=== PATIENT | female | born 1965 | race Caucasian/White ===

== ENCOUNTER 2016-11-26 11:21 | Day surgery (SDC) | payer BC ==
[2016-11-18 09:00] VITALS: BMI 42.5
[~2016-11-26 11:21] MED LIST: LACTATED RINGERS 1,000 ML IV SCH
[2016-11-26 12:40] VITALS: RESP 16; TEMP 98.2
[2016-11-26] MEDS ORDERED: PROPOFOL 10 MG/ML 20 ML VIAL IV ONE (13:47)
--- NOTE | 2016-11-26 14:21 | P.PCN ---
Date of Procedure: 11/26/16 Procedure(s) Performed: Procedure: Total colonoscopy Preoperative diagnosis: Rectal pain and rectal bleeding. Postoperative diagnosis: 1. Sigmoid diverticulosis with no evidence of acute diverticulitis, strictures polyps or cancer. 2. Prominent anal papillae but no definite fissures appreciated or any evidence of bleeding on this exam. Preparation: HalfLytely prep. Sedation: Was provided by anesthesia. Brief clinical history: The patient is a 51-year-old female who is referred for this evaluation because of rectal pains and intermittent rectal bleeding for the last couple months. She apparently had some similar episode in 2013 that subsided with conservative management. The patient had no prior colonoscopy. Her symptoms are not related to changes in her bowel movements. Procedure: With the patient on her left lateral decubitus position and after informed consent and adequate sedation, the perianal area was inspected and it did not show any fissures or fistulas. There was some skin redundancy and possible thrombosed external hemorrhoids. There were no masses felt on digital rectal examination. The Olympus CFQ 160L video colonoscope was then inserted in the rectum in the usual fashion and advanced to the cecum. There were several diverticular orifices seen scattered in the sigmoid but I saw no evidence of acute diverticulitis or strictures. The mucosa appeared healthy. No polyps or tumors were seen or any other pathology. In the retroflex view in the rectum I noted prominent anal papillae but there was no bleeding or other pathology identified. The patient tolerated the procedure well. Plan: The patient was reassured. Her symptoms are likely to be related to anal fissure and muscle spasm. I advised dietary measures, stool softeners, sitz baths and [id number] remedies. Further plans can be made based on her course. I will be happy to see in the office of her symptoms persist. She will follow-up with you as planned.
[2016-11-26 14:35] VITALS: BP 136/82; PULSE 72
== END 2016-11-26 15:18 | disposition home or self-care (01) ==
LOC: ORWHC2ENDO 11:21
DX: K57.30 Diverticulosis of large intestine without perforation or abscess without bleeding (principal); L98.7 Excessive and redundant skin and subcutaneous tissue; I10 Essential (primary) hypertension; K21.9 Gastro-esophageal reflux disease without esophagitis; Z79.1 Long term (current) use of non-steroidal anti-inflammatories (NSAID); Z79.899 Other long term (current) drug therapy
CPT/HCPCS: 81025; 45378; J2704; 99153

== ENCOUNTER → 2017-03-05 | Outpatient (CLI) | payer BC ==
--- NOTE | 2017-03-05 15:50 | US ---
EXAMINATION TYPE: US pelvic complete DATE OF EXAM: 03/05/2017 3:02 PM COMPARISON: 01/13/2015 CLINICAL HISTORY: R10.2 female pelvic pain, R19.09 Rt Lower Quad Mas. Patients states feeling a palpa ble lump on RLQ, lateral to umbilicus. Sometimes painful. TECHNIQUE: Transabdominal (TA) Date of LMP: 02/26/2017 EXAM MEASUREMENTS: Uterus: 9.8 x 4.6 x 4.3 cm Endometrial Stripe: 0.3 cm Right Ovary: 2.9 x 1.5 x 1.3 cm Left Ovary: 2.3 x 1.4 x 1.4 cm 1. Uterus: Anteverted Left fundal lesion - 1.9 x 1.6 x 1.7 cm 2. Endometrium: wnl 3. Right Ovary: wnl as visualized 4. Left Ovary: wnl as visualized Spectral, color and waveform doppler imaging shows good arterial and venous flow within the ovaries ; there is no evidence for ovarian torsion. 5. Bilateral Adnexa: wnl 6. Posterior cul-de-sac: wnl RLQ scanned at palpable area. No prominent mass or lesion seen. Contralateral images seen. IMPRESSION: 1. Left uterine lesion now measures 1.9 cm and previously measured 1.6 cm most likely in the basis of a fibroid within the uterine fundus.
== END | disposition home or self-care (01) ==
LOC: RADUSWWP 14:19
PROVIDERS: ATTEND Internal Medicine
DX: N85.9 Noninflammatory disorder of uterus, unspecified (principal); R10.2 Pelvic and perineal pain; R19.03 Right lower quadrant abdominal swelling, mass and lump
CPT/HCPCS: 76856

== ENCOUNTER → 2021-02-12 | Outpatient (CLI) | payer BC ==
--- NOTE | 2021-02-13 10:22 | MM ---
Reason for exam: additional evaluation requested from prior study. Last mammogram was performed 6 years ago. History: Patient is postmenopausal. Family history of breast cancer in paternal aunt and breast cancer in paternal grandmother. Physical Findings: Nurse did not find any significant physical abnormalities on exam. MG 3D Diag Mammo W/Cad [place] Bilateral CC and MLO view(s) were taken. Prior study comparison: February 06, 2015, bilateral MG screening mammo w CAD. March 23, 2013, bilateral digital screening mammo w/CAD. Finding #1: There is a 5 mm equal density (isodense) mass in the lower outer quadrant, central position of the right breast. Finding #2: There are typically benign grouped/clustered calcifications in the upper outer quadrant of the left breast, stable from 2012. Asymmetric density right upper outer posterior breast. These results were verbally communicated with the patient and result sheet given to the patient on 02/12/21. ASSESSMENT: Incomplete: need additional imaging evaluation, BI-RAD 0 RECOMMENDATION: Ultrasound of the right breast.
--- NOTE | 2021-02-13 10:24 | USB ---
Reason for exam: additional evaluation requested from abnormal screening. History: Patient is postmenopausal. Family history of breast cancer in paternal aunt and breast cancer in paternal grandmother. US Breast Limited RT Technologist: Meliza Read Right limited breast ultrasound including focal area of concern, retroareolar and axilla demonstrates a 0.5 x 0.5 x 0.5cm cystic lesion at 7 o'clock, septated versus cluster. These results were verbally communicated with the patient and result sheet given to the patient on 02/12/21. ASSESSMENT: Probably benign, BI-RAD 3 RECOMMENDATION: Follow-up diagnostic mammogram and ultrasound of the right breast in 6 months.
== END | disposition home or self-care (01) ==
LOC: RADMAMWWP 13:43
PROVIDERS: ATTEND Internal Medicine
DX: N64.89 Other specified disorders of breast (principal); R92.1 Mammographic calcification found on diagnostic imaging of breast; Z78.0 Asymptomatic menopausal state; Z80.3 Family history of malignant neoplasm of breast
CPT/HCPCS: 77062; 77066

== ENCOUNTER → 2021-08-27 | Outpatient (CLI) | payer BC ==
--- NOTE | 2021-08-28 11:19 | MM ---
Reason for exam: follow-up at short interval from prior study. Last mammogram was performed 6 months ago. History: Patient is postmenopausal. Family history of breast cancer in paternal aunt and breast cancer in paternal grandmother. Physical Findings: Nurse did not find any significant physical abnormalities on exam. MG 3D Diag Mammo W/Cad RT CC and MLO view(s) were taken of the right breast. Prior study comparison: February 12, 2021, bilateral MG 3d diag mammo w/cad [place]. February 06, 2015, bilateral MG screening mammo w CAD. There are scattered fibroglandular densities. Previous inferior posterior nodularity on MLO is no longer seen. Marker to indicate pain at the upper outer quadrant right breast. These results were verbally communicated with the patient and result sheet given to the patient on 08/27/21. ASSESSMENT: Incomplete: need additional imaging evaluation, BI-RAD 0 RECOMMENDATION: Ultrasound of the right breast.
--- NOTE | 2021-08-28 11:21 | USB ---
Reason for exam: additional evaluation requested from abnormal screening. History: Patient is postmenopausal. Family history of breast cancer in paternal aunt and breast cancer in paternal grandmother. US Breast Limited RT Right limited breast ultrasound including focal area of concern, retroareolar and axilla demonstrates no cystic or solid lesion seen. The previous 7 o'clock cyst cluster has resolved. No abnormality at the 11 o'clock site of pain. Scanned 7-11 o'clock. These results were verbally communicated with the patient and result sheet given to the patient on 08/27/21. ASSESSMENT: Benign, BI-RAD 2 RECOMMENDATION: Routine screening mammogram of both breasts in 6 months.
== END | disposition home or self-care (01) ==
LOC: RADMAMWWP 13:00
PROVIDERS: ATTEND Internal Medicine
DX: N64.89 Other specified disorders of breast (principal); Z78.0 Asymptomatic menopausal state; Z80.3 Family history of malignant neoplasm of breast
CPT/HCPCS: 77061; 77065

== ENCOUNTER → 2022-02-04 | Outpatient (CLI) | payer BC ==
--- NOTE | 2022-02-04 14:23 | XR ---
EXAMINATION TYPE: XR chest 2V DATE OF EXAM: 02/04/2022 COMPARISON: NONE TECHNIQUE: PA and lateral views submitted. HISTORY: Cough FINDINGS: The lungs are clear and there is no pneumothorax, pleural effusion, or focal pneumonia. Hypertrophi c and degenerative change of the spine. Mild hyperinflation correlate for COPD. Heart size normal. No overt failure. IMPRESSION: 1. No acute process.
== END | disposition home or self-care (01) ==
LOC: RADXRMAIN 10:17
PROVIDERS: ATTEND Internal Medicine
DX: R05.9 Cough, unspecified (principal)
CPT/HCPCS: 71046

== ENCOUNTER → 2022-02-13 | Outpatient (CLI) | payer BC ==
--- NOTE | 2022-02-13 12:28 | MM ---
Reason for exam: screening (asymptomatic). Last mammogram was performed 6 months ago. History: Patient is postmenopausal. Family history of breast cancer in paternal aunt and breast cancer in paternal grandmother. Physical Findings: A clinical breast exam by your physician is recommended on an annual basis and results should be correlated with mammographic findings. MG Screening Mammo w CAD Bilateral CC and MLO view(s) were taken. Prior study comparison: August 27, 2021, right breast MG 3d diag mammo w/cad RT. February 12, 2021, bilateral MG 3d diag mammo w/cad [place]. The breast tissue is heterogeneously dense. This may lower the sensitivity of mammography. Stable calcifications in the upper outer left breast. There is no discrete abnormality. No significant changes when compared with prior studies. ASSESSMENT: Benign, BI-RAD 2 RECOMMENDATION: Routine screening mammogram of both breasts in 1 year.
== END | disposition home or self-care (01) ==
LOC: RADMAMWWP 08:39
PROVIDERS: ATTEND Obstetrics & Gynecology
DX: Z12.31 Encounter for screening mammogram for malignant neoplasm of breast (principal); Z78.0 Asymptomatic menopausal state; Z80.3 Family history of malignant neoplasm of breast
CPT/HCPCS: 77067

== ENCOUNTER → 2023-04-04 | Outpatient (CLI) | payer BC ==
--- NOTE | 2023-04-04 15:11 | BD ---
EXAMINATION TYPE: Axial Bone Density DATE OF EXAM: 04/04/2023 CLINICAL HISTORY: 58 years old Female. ICD-10 CODE: Z12.31 Screen mammo; N95.1 menopausal Height: 62 in Weight: 247 lbs RISK FACTORS HISTORY OF: Family History of Osteoporosis: yes mother Active: yes Diet low in dairy products/other sources of calcium: yes Postmenopausal woman: age 51 MEDICATIONS: Additional Medications: vit d, blood pressure meds, vit c, zinc EXAM MEASUREMENTS: Bone mineral densitometry was performed using the [employer] System. Bone mineral density as measured about the Lumbar spine is: ----- L1-L4(G/cm2): 1.594 T Score Values are as follows: ----- L1: 2.4 ----- L2: 3.2 ----- L3: 3.7 ----- L4: 4.1 ----- L1-L4: 3.4 Z Score Values are as follows: ----- L1: 2.2 ----- L2: 3.0 ----- L3: 3.5 ----- L4: 3.9 ----- L1-L4: 3.2 Bone mineral density baseline Bone mineral density about the R hip (g/cm2): 1.066 Bone mineral density about the L hip (g/cm2): 1.133 T Score values are as follows: -----R Neck: 0.6 -----L Neck: 0.5 -----R Total: 0.5 -----L Total: 1.0 Z Score values are as follows: -----R Neck: 0.9 -----L Neck: 0.8 -----R Total: 0.4 -----L Total: 0.9 Bone mineral density baseline FRAX%s: The graph provided illustrates a 4.5% chance for a major osteoporotic fx and a 0.0% chance fo r the hips probability for fx in 10 years time. IMPRESSION: Normal (Values between +1 and -1 indicate normal bone mass). Consider repeating this study in 5 year s or sooner if there is some new clinical indication. NOTE: T-SCORE=SD OF THE YOUNG ADULT MEAN.
--- NOTE | 2023-04-07 05:59 | MM ---
Reason for Exam: Screening (asymptomatic). Last mammogram was performed 1 year(s) and 1 month(s) ago. Patient History: Menarche at age 12. First Full-Term at age 24. Postmenopausal. Paternal grandmother had breast cancer. Paternal aunt had breast cancer. Risk Values: Christine 5 year model risk: 1.3%. NCI Lifetime model risk: 7.7%. Prior Study Comparison: 02/12/2021 Bilateral Diagnostic Mammogram, [facility]. 08/27/2021 Right Diagnostic Mammogram, [facility]. 02/13/2022 Bilateral Screening Mammogram, [facility]. Tissue Density: There are scattered fibroglandular densities. Findings: Analyzed By CAD. There is no new suspicious group of microcalcifications in either breast. There are stable calcifications within the upper outer quadrant of both breasts. New 8 mm lobulated high density mass within the upper outer left breast at middle to posterior depth. Overall Assessment: Incomplete: need additional imaging evaluation, BI-RAD 0 Management: Diagnostic Breast Ultrasound of the left breast. A clinical breast exam by your physician is recommended on an annual basis and results should be correlated with mammographic findings. [facility] will attempt to contact patient to return for supplemental views and ultrasound if indicated. Note on Christine scores and lifetime risk: 1. A Christine score greater than 3% is considered moderate risk. If this is the case, consider specialist referral to assess eligibility for a risk reducing agent. If overall lifetime risk for the development of breast cancer is 20% or higher, the patient may qualify for future screening with alternating mammogram and breast MRI. Electronically signed and approved by: Jose Tomas D.O.
== END | disposition home or self-care (01) ==
LOC: RADMAMWWP 13:45
PROVIDERS: ATTEND Obstetrics & Gynecology
DX: Z12.31 Encounter for screening mammogram for malignant neoplasm of breast (principal); Z78.0 Asymptomatic menopausal state; Z80.3 Family history of malignant neoplasm of breast
CPT/HCPCS: 77067; 77080

== ENCOUNTER → 2023-04-09 | Outpatient (CLI) | payer BC ==
--- NOTE | 2023-04-09 09:06 | USB ---
Reason for Exam: Additional evaluation requested from abnormal screening. Patient History: Menarche at age 12. First Full-Term at age 24. Postmenopausal. Paternal grandmother had breast cancer. Paternal aunt had breast cancer. Risk Values: Christine 5 year model risk: 1.3%. NCI Lifetime model risk: 7.7%. Technique: Method: Targeted. Prior Study Comparison: 08/27/2021 Right Diagnostic Mammogram, [facility]. 02/13/2022 Bilateral Screening Mammogram, [facility]. 04/04/2023 Bilateral MG screening mammo w CAD, [facility]. Findings: The upper outer quadrant of the left breast, the axilla of the left breast and the retroareolar of the left breast were scanned. Imaged: Ultrasound imaging of: Area of concern, retroareolar region and axilla. Cluster of cysts at 3:00 centimeters from the nipple measuring 7 x 5 x 5 mm. Overall Assessment: Probably benign, BI-RAD 3 Management: Diagnostic Breast Ultrasound of the left breast in 6 months. A clinical breast exam by your physician is recommended on an annual basis and results should be correlated with mammographic findings. This exam should not preclude additional follow-up of suspicious palpable abnormalities. Results were given to the patient verbally at the time of exam. Electronically signed and approved by: Jake Mead DO
== END | disposition home or self-care (01) ==
LOC: RADUSWWP 08:26
PROVIDERS: ATTEND Obstetrics & Gynecology
DX: R92.8 Other abnormal and inconclusive findings on diagnostic imaging of breast (principal); Z78.0 Asymptomatic menopausal state; Z80.3 Family history of malignant neoplasm of breast

== ENCOUNTER → 2023-05-06 | Outpatient (CLI) | payer BC ==
--- NOTE | 2023-05-11 22:16 | MR ---
EXAMINATION TYPE: MR ankle RT wo con DATE OF EXAM: 05/06/2023 COMPARISON: No radiographic correlation available HISTORY: 58-year-old female Rt ankle pain. M25.571 PAIN IN RIGHT ANKLE AND JOINTS OF RIGHT FO TECHNIQUE: Multiplanar, multisequence images of the right ankle were obtained without IV contrast. FINDINGS: There is extensive partial tear of the mid to distal Achilles tendon. Retracted fibers are located at the level of the posterior malleolus, 4 cm above the calcaneal insertion. Deep fibers are visualized intact. Located 7.5 cm above the calcaneal insertion, there is focal redundancy and bunched up fibers, likely secondary to the tear located more inferiorly. A second level of injury at the myotendinous junction is difficult to exclude. Moderate generalized soft tissue swelling. There is a moderate-sized plantar heel spur. Focal thickening and adjacent soft tissue swelling at th e origin of the plantar fascia. Thickening measures up to 7 mm with deep sided partial tear. The tibiotalar joint is intact. Iliotibial subtalar joint is aligned. No acute or healing fracture is seen. There is mild tenosynovial fluid along the lateral peroneal tendons. Short segment split tear locate d at and just below the lateral malleolus, axial image 19. Anterior bulging convex contour of the ATFL suggests prior injury. Some edema is noted along the ATFL and CFL. There is a type II accessory navicular. Some minimal degenerative signal is present along the inferio r aspect of the accessory ossicle, sagittal image 9. Medial flexor tendons and deltoid spring ligamen t complex otherwise appears intact. Anterior extensor tendons and syndesmosis appear intact Preserved fatty signal within the sinus Tarsi. The tarsal tunnel is clear. Some nonspecific soft tissue swelling along the deep plantar midfoot musculature and some fluid along the plantar flexor tendons at this level at the knot of Brice. IMPRESSION: 1. High-grade distal Achilles tendon tear. Fibers are retracted 4 cm above the calcaneal insertion. M id and superficial fibers are torn. The deep fibers are visualized intact. 2. Focal redundancy of the Achilles tendon located 7.5 cm above the calcaneal insertion. Likely secon marika to the tear located more inferiorly. A second level of injury here at the myotendinous junction is difficult to exclude. 3. Plantar heel spur with thickening at the origin of the plantar fascia and a small deep fascial tea r. Correlate for plantar fasciitis. 4. Suspect a short segment split tear of the peroneus brevis at and just below the lateral malleolus. 5. Possible grade 1 sprains of the lateral ligamentous complex. 6. Type II accessory navicular. No significant degenerative change here. 7. Prominent generalized soft tissue swelling. Additional nonspecific soft tissue swelling along the deep plantar musculature.
== END | disposition home or self-care (01) ==
LOC: RADMRIMAIN 10:33
PROVIDERS: ATTEND Orthopaedic Surgery
DX: M66.871 Spontaneous rupture of other tendons, right ankle and foot (principal); M25.571 Pain in right ankle and joints of right foot; Q74.2 Other congenital malformations of lower limb(s), including pelvic girdle; M79.89 Other specified soft tissue disorders; M77.31 Calcaneal spur, right foot

== ENCOUNTER → 2024-03-30 | Outpatient (CLI) | payer BC ==
--- NOTE | 2024-03-31 10:15 | MM ---
Reason for Exam: Screening (asymptomatic). Last screening mammogram was performed 12 month(s) ago. Patient History: Menarche at age 12. First Full-Term at age 24. Postmenopausal. Patient has history of breast feeding. Paternal grandmother had breast cancer. Paternal aunt had breast cancer. Paternal cousin had ovarian cancer under age 50. Paternal cousin had breast cancer at or over age 50. Risk Values: Christine 5 year model risk: 1.3%. NCI Lifetime model risk: 7.6%. Prior Study Comparison: 02/12/2021 Bilateral Diagnostic Mammogram, [facility]. 08/27/2021 Right Diagnostic Mammogram, [facility]. 02/13/2022 Bilateral Screening Mammogram, [facility]. 04/04/2023 Bilateral MG screening mammo w CAD, [facility]. Tissue Density: There are scattered areas of fibroglandular density. Findings: Analyzed By CAD. There is no suspicious group of microcalcifications or new suspicious mass in either breast. Stable scattered benign-appearing calcifications. Overall Assessment: Benign, BI-RAD 2 Management: Screening Mammogram of both breasts in 1 year. . Patient should continue monthly self-breast exams. A clinical breast exam by your physician is recommended on an annual basis. This exam should not preclude additional follow-up of suspicious palpable abnormalities. Note on Christine scores and lifetime risk: 1. A Christine score greater than 3% is considered moderate risk. If this is the case, consider specialist referral to assess eligibility for a risk reducing agent. 2. If overall lifetime risk for the development of breast cancer is 20% or higher, the patient may qualify for future screening with alternating mammogram and breast MRI. Electronically signed and approved by: Avinash Barriga M.D. Radiologis
== END | disposition home or self-care (01) ==
LOC: RADMAMWWP 08:53
PROVIDERS: ATTEND Family Medicine
DX: Z12.31 Encounter for screening mammogram for malignant neoplasm of breast (principal); Z80.3 Family history of malignant neoplasm of breast; Z78.0 Asymptomatic menopausal state
CPT/HCPCS: 77063; 77067